=== PATIENT | female | born 1945 | race Caucasian/White ===

== ENCOUNTER 2018-11-28 15:59 | Inpatient (IN) | payer MEDICARE | END 2018-12-03 20:50 | disposition still patient (30) | LOC: EDH 15:59 → 3AH 11-29 14:46 → EDHIP 20:48 | DX: E86.0 Dehydration (principal); R41.82 Altered mental status, unspecified; W19.XXXA Unspecified fall, initial encounter; Y92.009 Unspecified place in unspecified non-institutional (private) residence as the place of occurrence of the external cause; E87.6 Hypokalemia; E83.42 Hypomagnesemia; I49.3 Ventricular premature depolarization; I49.1 Atrial premature depolarization ==

== ENCOUNTER 2018-12-28 05:42 | Day surgery (SDC) | payer MEDICARE ==
[~2018-12-28] VITALS: Ht 162.6 cm; Wt 53.5 kg
[~2018-12-28 05:42] MED LIST: AMLO5TAB9 PO; DICL75TA5 PO; DICY20TA11 PO; DULO30CA51 PO; GABA-531 PO; GLYC1TAB11 PO; HYDR12.530 PO; NABU500T3 PO; POTA-79 PO; TORS20TA4 PO; TRAM50TA4 PO
[2018-12-28] MEDS ORDERED: SODIUM CHLORIDE 0.9% 1000ML 1,000 ML IV ONE (05:45)
[2018-12-28 06:38] VITALS: BP 152/68
[2018-12-28] MEDS ORDERED: acetaminophen (06:57)
[2018-12-28] MEDS ORDERED: lidocaine (06:57)
[2018-12-28] MEDS ORDERED: mom (06:57)
[2018-12-28] MEDS ORDERED: ondansetron (06:57)
[2018-12-28] MEDS ORDERED: [UNRECOGNIZED DRUG - REMARK] (06:57)
[2018-12-28] MEDS ORDERED: [UNRECOGNIZED DRUG - OTHER] (06:57)
[2018-12-28] MEDS ORDERED: famotidine (06:57)
[2018-12-28 07:59] VITALS: BP 117/41
[2018-12-28 08:05] VITALS: BP 121/45
[2018-12-28 08:10] VITALS: BP 144/58
[2018-12-28 08:20] VITALS: BP 152/71
--- NOTE | 2018-12-28 08:30 | NUR ---
ACTIVITY PT WAS ASSISTED BY PCP LOURDES TO BATHROOM VIA WHEELCHAIR WITHOUT ANY PROBLEMS. PT HAD A BM X1, FORMED.
--- NOTE | 2018-12-28 13:35 | NUR ---
NOTE REPORT, DISCHARGE INSTRUCTIONS GIVEN TO [facility] NURSE MESSI FERNANDEZ. PER REBECCA, PT'S DAUGHTER HAD GIVEN HER PAPER WORKS FROM [facility] [place] INCLUDING INSTRUCTIONS POST COLONOSCOPY. REBECCA AWARE TO CONFIRM WITH DAUGHTER THE BOWEL PREP PRESCRIPTIONS AND WILL CALL DR. QUAN'S OFFICE FOR ANY FURTHER INSTRUCTIONS.
== END 2018-12-28 09:05 | disposition home or self-care (01) ==
LOC: ENDO 05:42 → DAH 05:42 → ENDO 09:05
PROVIDERS: ATTEND Internal Medicine
DX: Z12.11 Encounter for screening for malignant neoplasm of colon (principal); I10 Essential (primary) hypertension; F41.9 Anxiety disorder, unspecified; F32.9 Major depressive disorder, single episode, unspecified; M19.90 Unspecified osteoarthritis, unspecified site; Z98.890 Other specified postprocedural states; Z98.49 Cataract extraction status, unspecified eye; Z79.899 Other long term (current) drug therapy
CPT/HCPCS: 93005; A4606 ×2; G0121; J7030; 45378

== ENCOUNTER 2018-12-29 05:24 | Day surgery (SDC) | payer MEDICARE ==
[~2018-12-29] VITALS: Ht 162.6 cm; Wt 53.5 kg
[2018-12-29] VITALS (7 sets, daily range): BP systolic 123–171; BP diastolic 62–84
[~2018-12-29 05:24] MED LIST changes: +[UNRECOGNIZED DRUG - OTHER]; +[UNRECOGNIZED DRUG - REMARK]; +acetaminophen; +famotidine; +lidocaine; +mom; +ondansetron
[2018-12-29] MEDS ORDERED: SODIUM CHLORIDE 0.9% 1000ML 1,000 ML IV ONE (05:41)
[2018-12-29] MEDS ORDERED: PROPOFOL 10 MG/ML 20ML VIAL IV ONE (06:34)
[2018-12-29] MEDS ORDERED: GLYCOPYRROLATE 0.2 MG/ML 5 ML VIAL ONE (06:36)
== END 2018-12-29 07:44 ==
LOC: ENDO 05:24 → DAH 05:24 → ENDO 07:44
PROVIDERS: ATTEND Internal Medicine
DX: K57.30 Diverticulosis of large intestine without perforation or abscess without bleeding (principal); K56.699 Other intestinal obstruction unspecified as to partial versus complete obstruction; I10 Essential (primary) hypertension; F41.9 Anxiety disorder, unspecified; F32.9 Major depressive disorder, single episode, unspecified; M19.90 Unspecified osteoarthritis, unspecified site; Z79.899 Other long term (current) drug therapy; Z98.890 Other specified postprocedural states; Z98.49 Cataract extraction status, unspecified eye; Z90.710 Acquired absence of both cervix and uterus; R19.4 Change in bowel habit
CPT/HCPCS: 45380; 45385; A4606; J2704; J3490; J7030